=== PATIENT | female | born 1960 | race African-American/Black ===

== ENCOUNTER 2024-03-03 07:43 | Day surgery (SDC) | payer OTHER, SELFPAY ==
[2024-02-26 08:53] VITALS: BMI 45.2
[2024-03-03 08:05] VITALS: BP 150/92; PULSE 65; RESP 18; TEMP 36.8; O2SAT 100
[2024-03-03] MEDS: Tetracaine HCl/PF 0.5% Oph Sol 4 ML DROPS 1 DROP EYE-LEFT (08:15)
[2024-03-03] MEDS: Lactated Ringers 500 ML 50 ML IV (08:15)
[2024-03-03] MEDS: Cyclopentolate 1 % Ophth Sol 2 ML DRPBTL 1 DROP EYE-LEFT ×3 (08:16→08:29)
[2024-03-03] MEDS: Ketorolac Tromethamine 0.5% Op 10 ML DROPS 1 DROP EYE-LEFT ×3 (08:16→08:29)
[2024-03-03] MEDS: Tropicamide 1 % Ophth Sol 3 ML BTL 1 DROP EYE-LEFT ×3 (08:16→08:29)
[2024-03-03] MEDS: Phenylephrine HCL 2.5% Oph SoL 2 ML BOTTLE 1 DROP EYE-LEFT ×3 (08:16→08:29)
[2024-03-03 08:34] LABS: Glucose, Whole Blood 82 mg/dL (60-115)
--- NOTE | 2024-03-03 08:46 | P.CONAN_ITS ---
HPI - Anesthesia Eval Consult details Narrative: 63 yo F presenting for cataract extraction IOL insertion - left. Hx of vocal cord dysfunction. Has a pacemaker. [facility] Past Medical History Medical History Diabetes Asthma Atrial fibrillation Vocal cord dysfunction Sick sinus syndrome Obesity Depression Sleep apnea Back pain Hypothyroid PSVT (paroxysmal supraventricular tachycardia) CAD (coronary artery disease) Elevated cholesterol GERD (gastroesophageal reflux disease) DJD (degenerative joint disease) Asthma Family History Family history of problems with anesthesia: No Surgical History Surgical History History of esophagogastroduodenoscopy (EGD) History of carpal tunnel release Hx of laparoscopy H/O colonoscopy Hx of hysterectomy History of permanent cardiac pacemaker placement History of Problems with Anesthesia: No Social History Social History Are you a primary daycare director to a significant other at home: No Do you presently have visiting nurse or other home services: Yes ([employer]PER[employer]) Patient Tobacco Use Status: Never used Tobacco Use of substances other than those prescribed or required for medical reasons: No Have you been hit, kicked, punched, or otherwise hurt by someone within the past year? If so, by whom?: No Advance Directives: No (unknown) Advance Directives Information Provided: Yes Advance Directives on File: No Recently lost weight without trying: No Eating poorly because of decreased appetite: No Nutrition Risks: No Nutritional Risk Poor oral hygiene: No (missing teeth) Meds Allergies Allergy/AdvReac Type Severity Reaction Status Date / Time bupropion [From Wellbutrin] Allergy Intermediate weight gain Verified 03/03/24 08:40 colloidal oatmeal Allergy Intermediate Rash Verified 03/03/24 08:40 garlic Allergy Intermediate bradycardia Verified 03/03/24 08:40 metronidazole [From Flagyl] Allergy Intermediate Rash Verified 03/03/24 08:40 peas Allergy Intermediate Rash Verified 03/03/24 08:40 Penicillins Allergy Intermediate Palpitation Verified 03/03/24 08:40 s Active Medications: Current Medications Lactated Ringer's (Lr) 500 mls @ 50 mls/hr IV .Q10H JO Stop: 03/03/24 18:14 Last Admin: 03/03/24 08:15 Dose: 50 mls/hr Povidone Iodine (Povidone Iodine 5 % Ophth Soln 30 Ml Bottle) 1 appl EYE-LEFT PREOP PRN PRN Reason: Pre-Op Surgical Implant Prophy Home Medications ?Medication ?Instructions ?Recorded ?Confirmed ?Last Taken ?Type albuterol sulfate 90 mcg/actuation 2 puff inhalation Q4H PRN 02/26/24 02/26/24 Unknown History aerosol inhaler (Ventolin HFA) Shortness Of Breath Or Wheezing aspirin 81 mg tablet,delayed 81 mg PO DAILY 02/26/24 02/26/24 Unknown History release baclofen 10 mg tablet 10 mg PO BID 02/26/24 02/26/24 Unknown History budesonide 0.25 mg/2 mL suspension 0.25 mg inhalation Q4H PRN 02/26/24 02/26/24 Unknown History for nebulization Shortness Of Breath Or Wheezing cholecalciferol (vitamin D3) 25 25 mcg PO DAILY 02/26/24 02/26/24 Unknown History mcg (1,000 unit) capsule diltiazem HCl 240 mg 240 mg PO DAILY 02/26/24 02/26/24 Unknown History capsule,extended release 24 hr empagliflozin 10 mg tablet 10 mg PO DAILY 02/26/24 02/26/24 02/25/24 History (Jardiance) ezetimibe 10 mg tablet 10 mg PO DAILY 02/26/24 02/26/24 Unknown History levothyroxine 88 mcg tablet 88 mcg PO DAILY 02/26/24 02/26/24 03/03/24 History methylprednisolone 4 mg tablets in 4 mg PO DAILY PRN Shortness Of 02/26/24 02/26/24 Unknown History a dose pack Breath pantoprazole 40 mg tablet,delayed 40 mg PO DAILY 02/26/24 02/26/24 Unknown History release rosuvastatin 40 mg tablet 40 mg PO DAILY 02/26/24 02/26/24 Unknown History tramadol 50 mg tablet 50 mg PO TID PRN Pain 02/26/24 02/26/24 Unknown History Exam Exam Date and Time: March 03, 2024 0848 Height,Weight and Vital Signs: Height 4 ft 11.84 in Weight 104.5 kg Last Vital Signs Temp 98.3 F 03/03/24 08:05 Pulse 65 03/03/24 08:05 Resp 18 03/03/24 08:05 BP 150/92 H 03/03/24 08:05 Pulse Ox 100 03/03/24 08:05 O2 Del Method Room Air 03/03/24 08:05 Pertinent Lab Results Pertinent Lab Results: Laboratory Tests 03/03/24 08:20 POC Glucose 82 Airway Mallampati Class: I TM Dist: >3cm Neck ROM: Full Loose/Missing/Broken Teeth: No (patient denies any loose or broken teeth) Heart: S1S2 Lungs: CTAB Assessment and Plan Assessment Anesthesia Assessment: Anesthesia Plan Discussed and Chart Reviewed Final Anesthetic Review Family History of Problems with Anesthesia: No History of Problems with Anesthesia: No NPO: Yes ASA Class: III Final Preanesthetic Review: No Changes in Pt Med Stat, Meds/Allgs Chart Reviewed, Consent Obtained/Reviewed and Anes Risks/Benef Reviewed Patient Risk: High Procedure Risk: Low Anesthetic Plan Anesthetic Plan: MAC: and Agree w/ Assess. and Plan Disposition: Standard PACU
--- NOTE | 2024-03-03 09:12 | MHC.SHP ---
Pre-Procedural Eval Section A - 24 Hr Update-Section A only Date of Service: 03/03/24 The patient is an INPATIENT: No Changes since office visit: No Cold of Flu in the past 2 weeks, No New Medical Problems, No Changes in Medication and No Patient answered all questions The patient has been examined within 24 hours of the surgical procedure. The History & Physical has been completed within 30 days and I have reviewed it.: Yes Section B - Complete if H&P > 30 days Chief Complaint: Age-related nuclear cataract, left eye Allergies: Allergies Allergy/AdvReac Type Severity Reaction Status Date / Time bupropion [From Wellbutrin] Allergy Intermediate weight gain Verified 03/03/24 08:40 colloidal oatmeal Allergy Intermediate Rash Verified 03/03/24 08:40 garlic Allergy Intermediate bradycardia Verified 03/03/24 08:40 metronidazole [From Flagyl] Allergy Intermediate Rash Verified 03/03/24 08:40 peas Allergy Intermediate Rash Verified 03/03/24 08:40 Penicillins Allergy Intermediate Palpitation Verified 03/03/24 08:40 s Plan Diagnosis/Plan: Unchanged I have reviewed the history and physical and performed a pertinent physical examination on my patient. No changes have occurred unless specified. Time Spent With Patient Time: Total time managing care of this patient today ____ minutes.
--- NOTE | 2024-03-03 09:12 | HO.PNOPHT ---
Ophthalmology Procedure Procedure Date of Service: 03/03/24 Ophthalmology Viscoelastic: Healon Duet Dual Pack Pro Ophthalmology Lenses: IOL Acrysof MP - MA60AC (20.5) Procedure Notes: PREOPERATIVE DIAGNOSIS: Decreased visual acuity left eye secondary to cataract POSTOPERATIVE DIAGNOSIS: Same PROCEDURE: Left cataract extraction with intraocular lens insertion SURGEON: Parveen Belcher M.D. ANESTHESIA: Topical/MAC ESTIMATED BLOOD LOSS: None COMPLICATIONS: None After obtaining informed consent, the patient was brought to the operation room suite and placed in the supine position. After adequate sedation per anesthesia, topical drops of Tetracaine were given to the left eye. The eye was then prepped and draped in the usual sterile fashion. The operating room microscope was then positioned over the operative eye and a lid speculum placed. A paracentesis was created. Viscoelastic was then instilled into the anterior chamber. A three plane incision was then created temporally, utilizing a 2.85 mm keratome. Capsulotomy forceps were then utilized to create a circular tear capsulotomy. Hydrodissection and hydrodelineation were carried out until adequate mobilization of the nucleus occurred. Phacoemulsification was then utilized to remove the dense central nucleus followed by removal of the cortical material utilizing the automated aspiration irrigation unit. Viscoat elastic was instilled into the posterior capsular bag followed by placement of a posterior chamber intraocular lens without difficulty. The residual Viscoat elastic was then removed utilizing the automated IA machine. The wound was check and found to be watertight. The patient tolerated the procedure well and the lid speculum was removed. Intracameral injection of Vigamox 0.1 mL followed by a subtenon injection of Kenalog-40 0.2 mL were administered. The patient will be seen in the a.m.
[2024-03-03] MEDS: dexAMETHasone sod phosphate 4 MG/ML VIAL IVPUSH (09:15)
--- NOTE | 2024-03-03 09:28 | PC.NURSE ---
Dr. Oliveira spoke with patient regarding her history of vocal cord dysfunction and ordered Decadron 1ML prior to going into OR.
[2024-03-03 09:41] VITALS: BP 153/96; PULSE 60; RESP 16; TEMP 36.1; O2SAT 100
== END 2024-03-03 09:52 | disposition home or self-care (01) ==
PROVIDERS: PCP Internal Medicine; Visit Provider Ophthalmology
PROC: (CPT 66985; principal; 2024-03-03 09:10)
DX: H25.12 Age-related nuclear cataract, left eye (principal); Z83.511 Family history of glaucoma; H52.4 Presbyopia; H50.52 Exophoria; H11.153 Pinguecula, bilateral; E11.9 Type 2 diabetes mellitus without complications; E03.9 Hypothyroidism, unspecified; I47.10 Supraventricular tachycardia, unspecified; Z79.84 Long term (current) use of oral hypoglycemic drugs; Z79.82 Long term (current) use of aspirin; Z79.51 Long term (current) use of inhaled steroids; Z79.899 Other long term (current) drug therapy; Z88.0 Allergy status to penicillin; Z88.8 Allergy status to other drugs, medicaments and biological substances
CPT/HCPCS: 66984; 82947; J1100; J2250; J3010; J3301; V2630

== ENCOUNTER 2024-03-17 09:47 | Day surgery (SDC) | payer OTHER, SELFPAY ==
[2024-02-26 09:02] VITALS: BMI 45.2
--- NOTE | 2024-03-13 15:37 | HO.ANESPROP2 ---
Documented by User: Yara Dominguez NP 03/13/24 15:38 HPI - Anesthesia Eval Consult details Narrative: 63yo F for Right Cataract Extraction IOL Insertion Left eye 03/03/24: Fent 50, Midaz 2 Hx vocal cord dysfunction Pacer in situ PMFSH Past Medical History Medical History Diabetes Asthma Atrial fibrillation Vocal cord dysfunction Sick sinus syndrome Obesity Depression Sleep apnea Back pain Hypothyroid PSVT (paroxysmal supraventricular tachycardia) CAD (coronary artery disease) Elevated cholesterol GERD (gastroesophageal reflux disease) DJD (degenerative joint disease) Asthma Family History Family history of problems with anesthesia: No Surgical History Surgical History History of esophagogastroduodenoscopy (EGD) History of carpal tunnel release Hx of laparoscopy H/O colonoscopy Hx of hysterectomy History of permanent cardiac pacemaker placement History of Problems with Anesthesia: No Social History Social History Are you a primary health care administrator to a significant other at home: No 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 If so, by whom?: No Advance Directives Information Provided: Yes Advance Directives on File: No Recently lost weight without trying: No Eating poorly because of decreased appetite: No Nutrition Risks: No Nutritional Risk Poor oral hygiene: No (missing teeth) Meds Allergies Allergy/AdvReac Type Severity Reaction Status Date / Time bupropion [From Wellbutrin] Allergy Intermediate weight gain Verified 03/03/24 08:40 colloidal oatmeal Allergy Intermediate Rash Verified 03/03/24 08:40 garlic Allergy Intermediate bradycardia Verified 03/03/24 08:40 metronidazole [From Flagyl] Allergy Intermediate Rash Verified 03/03/24 08:40 peas Allergy Intermediate Rash Verified 03/03/24 08:40 Penicillins Allergy Intermediate Palpitation Verified 03/03/24 08:40 s Home Medications ?Medication ?Instructions ?Recorded ?Confirmed ?Last Taken ?Type albuterol sulfate 90 mcg/actuation 2 puff inhalation Q4H PRN 02/26/24 02/26/24 Unknown History aerosol inhaler (Ventolin HFA) Shortness Of Breath Or Wheezing aspirin 81 mg tablet,delayed 81 mg PO DAILY 02/26/24 02/26/24 Unknown History release baclofen 10 mg tablet 10 mg PO BID 02/26/24 02/26/24 Unknown History budesonide 0.25 mg/2 mL suspension 0.25 mg inhalation Q4H PRN 02/26/24 02/26/24 Unknown History for nebulization Shortness Of Breath Or Wheezing cholecalciferol (vitamin D3) 25 25 mcg PO DAILY 02/26/24 02/26/24 Unknown History mcg (1,000 unit) capsule diltiazem HCl 240 mg 240 mg PO DAILY 02/26/24 02/26/24 Unknown History capsule,extended release 24 hr empagliflozin 10 mg tablet 10 mg PO DAILY 02/26/24 02/26/24 03/06/24 History (Jardiance) ezetimibe 10 mg tablet 10 mg PO DAILY 02/26/24 02/26/24 Unknown History levothyroxine 88 mcg tablet 88 mcg PO DAILY 02/26/24 02/26/24 03/03/24 History methylprednisolone 4 mg tablets in 4 mg PO DAILY PRN Shortness Of 02/26/24 02/26/24 Unknown History a dose pack Breath pantoprazole 40 mg tablet,delayed 40 mg PO DAILY 02/26/24 02/26/24 Unknown History release rosuvastatin 40 mg tablet 40 mg PO DAILY 02/26/24 02/26/24 Unknown History tramadol 50 mg tablet 50 mg PO TID PRN Pain 02/26/24 02/26/24 Unknown History Exam Height,Weight and Vital Signs: Height 4 ft 11.84 in Weight 104.5 kg Assessment and Plan Assessment Anesthesia Assessment: Chart Reviewed Final Anesthetic Review Family History of Problems with Anesthesia: No History of Problems with Anesthesia: No Documented by User: Meghan Sultana MD 03/17/24 10:41 [facility] Past Medical History Medical History Diabetes Asthma Atrial fibrillation Vocal cord dysfunction Sick sinus syndrome Obesity Depression Sleep apnea Back pain Hypothyroid PSVT (paroxysmal supraventricular tachycardia) CAD (coronary artery disease) Elevated cholesterol GERD (gastroesophageal reflux disease) DJD (degenerative joint disease) Asthma Surgical History Surgical History History of esophagogastroduodenoscopy (EGD) History of carpal tunnel release Hx of laparoscopy H/O colonoscopy Hx of hysterectomy History of permanent cardiac pacemaker placement Social History Social History Are you a primary health care administrator to a significant other at home: No 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 If so, by whom?: No Advance Directives Information Provided: Yes Advance Directives on File: No Recently lost weight without trying: No Eating poorly because of decreased appetite: No Nutrition Risks: No Nutritional Risk Poor oral hygiene: No (missing teeth) Meds Allergies Allergy/AdvReac Type Severity Reaction Status Date / Time bupropion [From Wellbutrin] Allergy Intermediate weight gain Verified 03/03/24 08:40 colloidal oatmeal Allergy Intermediate Rash Verified 03/03/24 08:40 garlic Allergy Intermediate bradycardia Verified 03/03/24 08:40 metronidazole [From Flagyl] Allergy Intermediate Rash Verified 03/03/24 08:40 peas Allergy Intermediate Rash Verified 03/03/24 08:40 Penicillins Allergy Intermediate Palpitation Verified 03/03/24 08:40 s Home Medications ?Medication ?Instructions ?Recorded ?Confirmed ?Last Taken ?Type albuterol sulfate 90 mcg/actuation 2 puff inhalation Q4H PRN 02/26/24 02/26/24 Unknown History aerosol inhaler (Ventolin HFA) Shortness Of Breath Or Wheezing aspirin 81 mg tablet,delayed 81 mg PO DAILY 02/26/24 02/26/24 Unknown History release baclofen 10 mg tablet 10 mg PO BID 02/26/24 02/26/24 Unknown History budesonide 0.25 mg/2 mL suspension 0.25 mg inhalation Q4H PRN 02/26/24 02/26/24 Unknown History for nebulization Shortness Of Breath Or Wheezing cholecalciferol (vitamin D3) 25 25 mcg PO DAILY 02/26/24 02/26/24 Unknown History mcg (1,000 unit) capsule diltiazem HCl 240 mg 240 mg PO DAILY 02/26/24 02/26/24 Unknown History capsule,extended release 24 hr empagliflozin 10 mg tablet 10 mg PO DAILY 02/26/24 02/26/24 03/06/24 History (Jardiance) ezetimibe 10 mg tablet 10 mg PO DAILY 02/26/24 02/26/24 Unknown History levothyroxine 88 mcg tablet 88 mcg PO DAILY 02/26/24 02/26/24 03/03/24 History methylprednisolone 4 mg tablets in 4 mg PO DAILY PRN Shortness Of 02/26/24 02/26/24 Unknown History a dose pack Breath pantoprazole 40 mg tablet,delayed 40 mg PO DAILY 02/26/24 02/26/24 Unknown History release rosuvastatin 40 mg tablet 40 mg PO DAILY 02/26/24 02/26/24 Unknown History tramadol 50 mg tablet 50 mg PO TID PRN Pain 02/26/24 02/26/24 Unknown History Exam Airway Mallampati Class: II TM Dist: >3cm Neck ROM: Limited Heart: rrr Lungs: cta Assessment and Plan Assessment Anesthesia Assessment: Anesthesia Plan Discussed Final Anesthetic Review NPO: Yes ASA Class: III Final Preanesthetic Review: No Changes in Pt Med Stat, Meds/Allgs Chart Reviewed, Consent Obtained/Reviewed and Anes Risks/Benef Reviewed Patient Risk: Intermediate Procedure Risk: Low Anesthetic Plan Anesthetic Plan: MAC: Disposition: Standard PACU
[2024-03-17 10:37] LABS: Glucose, Whole Blood 89 mg/dL (60-115)
[2024-03-17] MEDS: Ketorolac Tromethamine 0.5% Op 10 ML DROPS 1 DROP EYE-RIGHT ×3 (10:42→10:43)
[2024-03-17] MEDS: Cyclopentolate 1 % Ophth Sol 2 ML DRPBTL 1 DROP EYE-RIGHT ×3 (10:42→10:44)
[2024-03-17] MEDS: Lactated Ringers 500 ML 50 ML IV (10:42)
[2024-03-17] MEDS: Phenylephrine HCL 2.5% Oph SoL 2 ML BOTTLE 1 DROP EYE-RIGHT ×3 (10:42→10:44)
[2024-03-17] MEDS: Tropicamide 1 % Ophth Sol 3 ML BTL 1 DROP EYE-RIGHT ×3 (10:43)
[2024-03-17 10:45] VITALS: BP 153/78; PULSE 65; RESP 18; TEMP 36.4; O2SAT 96
--- NOTE | 2024-03-17 12:11 | P.PCNO_ITS ---
Ophthalmology Procedure Procedure Date of Service: 03/17/24 Ophthalmology Viscoelastic: Healon Duet Dual Pack Pro Ophthalmology Lenses: IOL Acrysof MP - MA60AC (19.5) Procedure Notes: PREOPERATIVE DIAGNOSIS: Decreased visual acuity right eye secondary to cataract POSTOPERATIVE DIAGNOSIS: Same PROCEDURE: Right cataract extraction with intraocular lens insertion SURGEON: Parveen Belcher M.D. ANESTHESIA: Topical/MAC ESTIMATED BLOOD LOSS: None COMPLICATIONS: None After obtaining informed consent, the patient was brought to the operating room suite and placed in the supine position. After adequate sedation per anesthesia, topical drops of Tetracaine were given to the right eye. The eye was then prepped and draped in the usual sterile fashion. The operating room microscope was then positioned over the operative eye and a lid speculum placed. A paracentesis was created. Viscoelastic was then instilled into the anterior chamber. A three plane incision was then created temporally, utilizing a 2.85 mm keratome. Capsulotomy forceps were then utilized to create a circular tear capsulotomy. Hydrodissection and hydrodelineation were carried out until adequate mobilization of the nucleus occurred. Phacoemulsification was then utilized to remove the dense central nu cleus followed by removal of the cortical material utilizing the automated aspiration irrigation unit. Viscoelastic was instilled into the posterior capsular bag followed by placement of a posterior chamber intraocular lens without difficulty. The residual Viscoelastic was then removed utilizing the automated IA machine. The wound was checked and found to be watertight. The patient tolerated the procedure well and the lid speculum was removed. Intracameral injection of Vigamox 0.1 mL followed by a subtenon injection of Kenalog-40 0.2 mL were administered. The patient will be seen in the a.m.
--- NOTE | 2024-03-17 12:11 | MHC.SHP ---
Pre-Procedural Eval Section A - 24 Hr Update-Section A only Date of Service: 03/17/24 The patient is an INPATIENT: No Changes since office visit: No Cold of Flu in the past 2 weeks, No New Medical Problems, No Changes in Medication and No Patient answered all questions The patient has been examined within 24 hours of the surgical procedure. The History & Physical has been completed within 30 days and I have reviewed it.: Yes Section B - Complete if H&P > 30 days Chief Complaint: Age-related nuclear cataract, right eye Allergies: Allergies Allergy/AdvReac Type Severity Reaction Status Date / Time bupropion [From Wellbutrin] Allergy Intermediate weight gain Verified 03/03/24 08:40 colloidal oatmeal Allergy Intermediate Rash Verified 03/03/24 08:40 garlic Allergy Intermediate bradycardia Verified 03/03/24 08:40 metronidazole [From Flagyl] Allergy Intermediate Rash Verified 03/03/24 08:40 peas Allergy Intermediate Rash Verified 03/03/24 08:40 Penicillins Allergy Intermediate Palpitation Verified 03/03/24 08:40 s Plan Diagnosis/Plan: Unchanged I have reviewed the history and physical and performed a pertinent physical examination on my patient. No changes have occurred unless specified. Time Spent With Patient Time: Total time managing care of this patient today ____ minutes.
[2024-03-17 12:38] VITALS: BP 154/84; PULSE 65; RESP 16; TEMP 36.1; O2SAT 97
== END 2024-03-17 13:52 | disposition home or self-care (01) ==
PROVIDERS: PCP Internal Medicine; Visit Provider Ophthalmology
PROC: (CPT 66985; principal; 2024-03-17 11:40)
DX: H25.11 Age-related nuclear cataract, right eye (principal); H52.4 Presbyopia; Z83.511 Family history of glaucoma; H11.153 Pinguecula, bilateral; H50.52 Exophoria; E11.9 Type 2 diabetes mellitus without complications; E03.9 Hypothyroidism, unspecified; I25.10 Atherosclerotic heart disease of native coronary artery without angina pectoris; I47.10 Supraventricular tachycardia, unspecified; Z95.0 Presence of cardiac pacemaker; J45.909 Unspecified asthma, uncomplicated; G47.33 Obstructive sleep apnea (adult) (pediatric); Z79.82 Long term (current) use of aspirin; Z79.84 Long term (current) use of oral hypoglycemic drugs; Z79.899 Other long term (current) drug therapy; Z99.89 Dependence on other enabling machines and devices; Z88.0 Allergy status to penicillin; Z88.8 Allergy status to other drugs, medicaments and biological substances
CPT/HCPCS: 66984; 82947; J1100; J2250; J3301; V2630